=== PATIENT | male | born 1975 | race Caucasian/White ===

== ENCOUNTER → 2017-12-06 | Outpatient (CLI) | payer OTHER ==
--- NOTE | 2017-12-06 10:20 | RADRPT ---
EXAM DATE: 12/06/2017 10:11 AM EDT AGE/SEX: 42 years / Male INDICATIONS: Short of breath CLINICAL DATA: This is the patient's initial encounter. Patient reports that signs and symptoms have been present for > 1 year and indicates a pain score of 0/10. MEDICAL/SURGICAL HISTORY: Chronic obstructive pulmonary disease. Hypertension. sleep apnea No ne. COMPARISON: No prior exams available for comparison. FINDINGS: Minimal anterior basilar atelectasis is noted. No focal consolidation is noted. No pulmonary edema is noted. The heart is normal. CONCLUSION: 1. Minimal anterior basilar atelectasis. 2. No focal pneumonia or pulmonary vascular congestion. Electronically signed by: Renzo Santillan MD 12/06/2017 10:18 AM EDT
== END ==
LOC: HRSP 08:16
PROVIDERS: ATTEND Internal Medicine Sleep Medicine
DX: R06.89 Other abnormalities of breathing (principal)
CPT/HCPCS: 36600; 71046; 82805; 94060; 94726; 94729